=== PATIENT | female | born 1995 | race Two or more races ===

== ENCOUNTER 2019-11-27 20:37 | Emergency (ER) | payer MEDICAID ==
[~2019-11-27] VITALS: Ht 165.1 cm; Wt 65.8 kg
[~2019-11-27 20:37] MED LIST: BENZ1TAB2; BUTA50TA; NOR10T; PROVENTIL
[2019-11-27 21:26] VITALS: BP 131/83
== END 2019-11-27 22:54 | disposition left against medical advice (07) ==
LOC: ER 20:40
DX: R22.0 Localized swelling, mass and lump, head (principal); R42 Dizziness and giddiness; Z53.21 Procedure and treatment not carried out due to patient leaving prior to being seen by health care provider; Y04.2XXA Assault by strike against or bumped into by another person, initial encounter; Y93.89 Activity, other specified; Y92.89 Other specified places as the place of occurrence of the external cause; Y99.8 Other external cause status
CPT/HCPCS: 70450; 70486; 72125

== ENCOUNTER 2020-07-10 12:32 | Emergency (ER) | payer MEDICAID ==
[~2020-07-10] VITALS: Ht 152.4 cm; Wt 63.5 kg
[2020-07-10] MEDS ORDERED: LORazepam 2MG/ML-1ML VIAL IM ONE (12:45)
[2020-07-10] MEDS ORDERED: HALOPERIDOL LACTATE 5 MG/ML INJ VIAL IM ONE (12:45)
[2020-07-10] MEDS ORDERED: diphenhdrAMINE HCL 50 MG/1 ML VL IM ONE (12:45)
[2020-07-10] MEDS ORDERED: SODIUM CHLORIDE 0.9% 1,000 ML IV ONE (12:45)
[2020-07-10 22:39] LABS: Alcohol, Urine < 3.0 mg/dL (0-10); Barbiturate Scree,Urine NEGATIVE (NEGATIVE); Cannabinoid Screen, Urine NEGATIVE (NEGATIVE); Cocaine Screen, Urine NEGATIVE (NEGATIVE); Phencyclidine Screen, Urine NEGATIVE (NEGATIVE)
[2020-07-10 22:48] LABS: Amphetamine Screen, Urine POSITIVE (NEGATIVE); Benzodiazephine Screen, Urine POSITIVE (NEGATIVE); Opiate Scree,Urine POSITIVE (NEGATIVE)
[2020-07-11 04:50] VITALS: BP 110/73
== END 2020-07-11 05:15 | disposition home or self-care (01) ==
LOC: ER 12:32
DX: R41.82 Altered mental status, unspecified (principal); G92 Toxic encephalopathy; J45.909 Unspecified asthma, uncomplicated; F17.210 Nicotine dependence, cigarettes, uncomplicated
CPT/HCPCS: 36415; 80307; 80320; 81025; 96360; 96372; 99285; J1200; J1630; J2060; J7030

== ENCOUNTER 2021-12-04 04:13 | Emergency (ER) | payer MEDICAID ==
[~2021-12-04] VITALS: Ht 162.6 cm; Wt 72.6 kg
[2021-12-04 04:14] VITALS: BP 132/80
== END 2021-12-04 04:45 | disposition left against medical advice (07) ==
LOC: ER 04:13
DX: L02.512 Cutaneous abscess of left hand (principal); Z53.21 Procedure and treatment not carried out due to patient leaving prior to being seen by health care provider

== ENCOUNTER 2022-04-29 21:43 | Emergency (ER) | payer MEDICAID ==
[~2022-04-29] VITALS: Ht 165.1 cm; Wt 75.0 kg
[2022-04-29 22:50] VITALS: BP 106/70
== END 2022-04-30 03:20 | disposition left against medical advice (07) ==
LOC: ER 21:43
DX: F99 Mental disorder, not otherwise specified (principal); Z53.21 Procedure and treatment not carried out due to patient leaving prior to being seen by health care provider

== ENCOUNTER 2023-11-14 00:27 | Emergency (ER) | payer MEDICAID ==
[~2023-11-14] VITALS: Ht 162.6 cm; Wt 72.7 kg
[~2023-11-14 00:27] MED LIST changes: -BENZ1TAB2; +BENZ1TAB6
[2023-11-14 01:32] VITALS: BP 139/91; PULSE 105; RESP 18; TEMP 99; O2SAT 98
[2023-11-14] MEDS: DexAMETHasone SOD PHOS 10MG/1ML VIAL INJ IM ONE (01:56)
[2023-11-14] MEDS: KETOROLAC TROMETH 60MG/2ML VIAL IM ONE (01:57)
[2023-11-14 02:38] LABS: Rapid Strep A Screen-Throat Positive
[2023-11-14] MEDS ORDERED: AMOX500T3 PO (02:45)
== END 2023-11-14 02:49 | disposition home or self-care (01) ==
LOC: ER 00:27 → EDBD 00:27 → ER 02:49
DX: J02.0 Streptococcal pharyngitis (principal); J45.909 Unspecified asthma, uncomplicated; F17.210 Nicotine dependence, cigarettes, uncomplicated; Z88.6 Allergy status to analgesic agent
CPT/HCPCS: 87880; 96372; 99284; J1100; J1885

== ENCOUNTER 2023-12-20 13:38 | Emergency (ER) | payer MEDICAID ==
[~2023-12-20] VITALS: Ht 162.6 cm; Wt 74.2 kg
[~2023-12-20 13:38] MED LIST changes: +AMOX500T3 PO
[2023-12-20 13:41] VITALS: BP 122/66; PULSE 88; RESP 16; TEMP 98.4; O2SAT 98
[2023-12-20] MEDS ORDERED: NAP500T PO (15:22)
[2023-12-20] MEDS ORDERED: AUG875T PO (15:22)
[2023-12-20] MEDS: TETANUS-DIPTH-ACEL PERTUSSIS 0.5ML SYR Tdap IM ONE (15:26)
[2023-12-20] MEDS: NEOMYCIN-BACITRACIN-POLYM UNITDOSE PKG TOP OINT TOP ONE (15:26)
== END 2023-12-20 15:35 | disposition home or self-care (01) ==
LOC: ER 13:38
DX: S81.851A Open bite, right lower leg, initial encounter (principal); H00.011 Hordeolum externum right upper eyelid; Z59.00 Homelessness unspecified; W54.0XXA Bitten by dog, initial encounter; Y93.89 Activity, other specified; Y92.89 Other specified places as the place of occurrence of the external cause; Y99.8 Other external cause status
CPT/HCPCS: 90471; 90715

== ENCOUNTER 2024-08-31 13:42 | Emergency (ER) | payer MEDICAID ==
[~2024-08-31] VITALS: Ht 165.1 cm; Wt 75.0 kg
[~2024-08-31 13:42] MED LIST changes: +AUG875T PO; +NAP500T PO
[2024-08-31 13:54] VITALS: BP 114/56; PULSE 110; RESP 18; O2SAT 100
== END 2024-08-31 15:28 | disposition left against medical advice (07) ==
LOC: ER 13:42
DX: R21 Rash and other nonspecific skin eruption (principal); Z53.21 Procedure and treatment not carried out due to patient leaving prior to being seen by health care provider